=== PATIENT | male | born 1995 | race Caucasian/White ===

== ENCOUNTER 2022-01-23 01:23 | Emergency (ER) | payer OTHER ==
[2022-01-23 01:36] VITALS: BP 99/68; PULSE 67; RESP 18; TEMP 98.9; BMI 22.8
== END 2022-01-23 04:26 | disposition home or self-care (01) ==
LOC: JER 01:23
DX: S39.012A Strain of muscle, fascia and tendon of lower back, initial encounter (principal); S86.911A Strain of unspecified muscle(s) and tendon(s) at lower leg level, right leg, initial encounter; Y99.8 Other external cause status
CPT/HCPCS: 72100-TC-FY; 73560-TC-RT-FY; 99284-25

== ENCOUNTER 2022-07-23 09:14 | Emergency (ER) | payer OTHER ==
[2022-07-23] MEDS ORDERED: DIPHTH,PERTUSS(ACELL),TET 0.5 ML DISP.SYRIN IM ONE ×2 (09:24→09:34)
[2022-07-23] MEDS ORDERED: BACITRACIN ZINC 15 GM TUBE TOPICAL OINTMENT TP ONE (09:24)
[2022-07-23] MEDS ORDERED: IBUPROFEN 600 MG TABLET (FP) PO ONE ×2 (09:27→09:33)
[2022-07-23 09:53] VITALS: BP 130/80; PULSE 84; RESP 18; TEMP 99.8; BMI 16.2
== END 2022-07-23 09:56 | disposition home or self-care (01) ==
LOC: FER 09:14
PROC: 3E0234Z Introduction of Serum, Toxoid and Vaccine into Muscle, Percutaneous Approach (ICD-10-PCS; principal; 2022-07-23)
DX: S60.511A Abrasion of right hand, initial encounter (principal); M79.641 Pain in right hand; M25.561 Pain in right knee; S80.211A Abrasion, right knee, initial encounter; X58.XXXA Exposure to other specified factors, initial encounter; Y99.0 Civilian activity done for income or pay
CPT/HCPCS: 90715; 99283-25

== ENCOUNTER 2022-09-24 03:24 | Emergency (ER) | payer OTHER ==
[2022-09-24 03:29] VITALS: BP 127/85; PULSE 81; RESP 16; TEMP 98.8; BMI 23.6
== END 2022-09-24 03:39 | disposition home or self-care (01) ==
LOC: FER 03:24
DX: S86.912A Strain of unspecified muscle(s) and tendon(s) at lower leg level, left leg, initial encounter (principal); Z77.21 Contact with and (suspected) exposure to potentially hazardous body fluids; X50.1XXA Overexertion from prolonged static or awkward postures, initial encounter
CPT/HCPCS: 99282-25